=== PATIENT | female | born 1970 | race Two or more races ===

== ENCOUNTER 2016-11-28 07:33 | Emergency (ER) | payer MEDICAID ==
[2016-11-28 08:00] LABS: HCG,QUALITATIVE URINE NEGATIVE; URINE BILIRUBIN NEGATIVE (NEGATIVE); URINE BLOOD 3+ (NEGATIVE); URINE GLUCOSE (UA) NEGATIVE (NEGATIVE); URINE LEUKOCYTE ESTERASE TRACE (NEGATIVE); URINE NITRITE NEGATIVE (NEGATIVE); URINE PROTEIN NEGATIVE (NEGATIVE); URINE UROBILINOGEN NORMAL (0-1 mg/dl)
[2016-11-28 08:05] LABS: URINE COLOR YELLOW
[2016-11-28 08:06] LABS: URINE APPEARANCE SLIGHTLY HAZY
[2016-11-28 08:16] LABS: URINE BACTERIA FEW; URINE EPITHELIAL CELLS 1+ /hpf
== END 2016-11-28 08:28 | disposition home or self-care (01) ==
LOC: ED 07:33
DX: N39.0 Urinary tract infection, site not specified (principal)

== ENCOUNTER 2017-01-11 19:06 | Emergency (ER) | payer OTHER, MEDICAID | END 2017-01-11 21:40 | disposition home or self-care (01) | LOC: ED 19:06 | DX: S16.1XXA Strain of muscle, fascia and tendon at neck level, initial encounter (principal); S39.012A Strain of muscle, fascia and tendon of lower back, initial encounter; V43.52XA Car driver injured in collision with other type car in traffic accident, initial encounter; Y92.410 Unspecified street and highway as the place of occurrence of the external cause ==